=== PATIENT | female | born 1995 | race African-American/Black ===

== ENCOUNTER 2019-06-04 15:25 | Emergency (ER) | payer SELFPAY ==
[~2019-06-04] VITALS: Ht 165.1 cm; Wt 58.0 kg
[2019-06-04 17:10] LABS: CHLORIDE 105 mEq/L (98-107)
[2019-06-04 17:13] LABS: BASOPHILS % 0.7 % (0.0-2.0); EOSINOPHILS % 0.2 % (0.0-5.0); HEMATOCRIT. 36.2 % (36.0-48.0); HEMOGLOBIN. 11.6 g/dL (12.0-16.0); LYMPHOCYTES % 23.5 % (20.0-50.0); MEAN CORPUSCULAR HEMOGLOBIN 22.6 pg (28.0-32.0); MEAN CORPUSCULAR VOLUME 70.1 fL (81.0-99.0); MEAN PLATELET VOLUME 8.2 fl (7.4-10.4); MONOCYTES % 6.7 % (2.0-8.0); NEUTROPHILS % 68.9 % (40.0-76.0); PLATELET 278 x1000/uL (130-400); RED BLOOD CELL COUNT 5.16 mill/uL (4.2-5.4); RED CELL DISTRIBUTION WIDTH 13.2 % (11.6-14.6)
[2019-06-04 17:15] LABS: ETHANOL BLOOD < 10 mg/dL
[2019-06-04 18:43] VITALS: BP 122/86
== END 2019-06-04 18:47 | disposition home or self-care (01) ==
LOC: EDSEX 15:25 → ER 15:25
DX: T43.592A Poisoning by other antipsychotics and neuroleptics, intentional self-harm, initial encounter (principal); F20.9 Schizophrenia, unspecified; F32.9 Major depressive disorder, single episode, unspecified; Y92.018 Other place in single-family (private) house as the place of occurrence of the external cause
CPT/HCPCS: 36415; 80053; 80320; 85025; 99284; G0480